=== PATIENT | male | born 1950 | race Caucasian/White ===

== ENCOUNTER → 2017-08-22 | Outpatient (CLI) | payer MEDICARE, OTHER ==
[2014-09-17 14:28] VITALS: BMI 36.5
[~2017-08-22] MED LIST: AMO500 PO; ASPI-1471 PO; AZIT-17 PO; LISI-362 PO; LISI20TA29 PO; LISI5TAB25 PO; MET500 PO; METF-420 PO; MULT-1 PO; MULT-885 PO; OXYGENHOME INH; PNEI IJ; SIMV-49 PO; SITA1TAB17 PO; TADA20TA33 PO; TADA5TAB7 PO
[2017-08-22 09:56] LABS: PLATELET COUNT, AUTOMATED 177 K/uL (150-450)
[2017-08-22 10:17] LABS: LDL CHOLESTEROL 88 mg/dl
== END ==
LOC: LAB 09:11
PROVIDERS: ATTEND Internal Medicine
DX: E11.22 Type 2 diabetes mellitus with diabetic chronic kidney disease (principal); N18.3 Chronic kidney disease, stage 3 (moderate); E78.5 Hyperlipidemia, unspecified
CPT/HCPCS: 36415; 82040; 82247; 82310; 82374; 82435; 82465; 82565; 82947; 83036; 83718; 84075; 84132; 84155; 84295; 84443; 84450; 84460; 84478; 84520; 85025

== ENCOUNTER → 2018-01-05 | Outpatient (CLI) | payer MEDICARE, OTHER ==
[2014-09-17 14:28] VITALS: BMI 36.5
[~2018-01-05] MED LIST changes: +GLIM2TAB43 PO; +HYDR12.561 PO; -METF-420 PO; +METF-421 PO; +trimix
[2018-01-05 09:02] LABS: PLATELET COUNT, AUTOMATED 199 K/uL (150-450)
== END ==
LOC: LAB 08:44
PROVIDERS: ATTEND Internal Medicine
DX: Z12.5 Encounter for screening for malignant neoplasm of prostate (principal); E11.9 Type 2 diabetes mellitus without complications; E78.5 Hyperlipidemia, unspecified; I10 Essential (primary) hypertension; R06.00 Dyspnea, unspecified; R09.02 Hypoxemia; D75.1 Secondary polycythemia
CPT/HCPCS: 36415; 81001; 82728; 83036; 83540; 83550; 84443; 85025; G0103; 82040; 82247; 82310; 82374; 82435; 82465; 82565; 82947; 83718; 84075; 84132; 84153; 84155; 84295; 84450; 84460; 84478; 84520

== ENCOUNTER → 2018-02-01 | Outpatient (CLI) | payer MEDICARE, OTHER ==
[2014-09-17 14:28] VITALS: BMI 36.5
== END ==
LOC: LAB 08:22
PROVIDERS: ATTEND Internal Medicine
DX: E11.9 Type 2 diabetes mellitus without complications (principal)
CPT/HCPCS: 36415; 82040; 82247; 82310; 82374; 82435; 82565; 82947; 84075; 84132; 84155; 84295; 84450; 84460; 84520

== ENCOUNTER 2018-03-14 02:32 | Day surgery (SDC) | payer MEDICARE, OTHER ==
[2014-09-17 14:28] VITALS: Ht 180.3 cm; Wt 118.4 kg
[~2018-03-14] VITALS: Ht 180.3 cm; Wt 118.4 kg
[2018-03-14 06:54] VITALS: BP 147/79
[2018-03-14] MEDS ORDERED: LIDOCAINE MPF 1% 5 ML VIAL ONE (07:08)
[2018-03-14] MEDS ORDERED: PROPOFOL EMUL(*) 10MG/ML 20 ML 40 ML ONE (07:08)
[2018-03-14] MEDS ORDERED: LIDOCAINE/SOD BICARB 8.4% SYR ID ONE (07:10)
[2018-03-14] MEDS ORDERED: NORMOSOL R SOLN(*) 1000 ML BAG 1,000 ML IV PRN (07:10)
[2018-03-14 08:21] VITALS: BP 120/74
--- NOTE | 2018-03-14 08:28 | Short(Outpt) Discharge Summary ---
Discharge Summary Reason for Hosp/Final Diag: (1) Colon cancer screening Status: Chronic Hospital Course & Plan: Colonoscopy was completed without any problems: normal. Departure Discharge to: Home, Self Care Discharge Instructions Home Meds Active Scripts Hydrochlorothiazide (HYDROCHLOROTHIAZIDE) 12.5 Mg Tablet, 1 TAB PO QDAY, #90 TAB 3 Refills Prov:LONNY QUEEN MD 02/23/18 Simvastatin (SIMVASTATIN) 20 Mg Tablet, 1 TAB PO HS, #90 TAB 4 Refills Prov:LONNY QUEEN MD 09/30/17 Lisinopril (LISINOPRIL) 20 Mg Tablet, 1 TAB PO BID, #180 TAB 4 Refills Prov:LONNY QUEEN MD 09/12/17 Glimepiride (GLIMEPIRIDE) 2 Mg Tablet, 2 MG PO QDAY, #30 TAB 6 Refills Prov:LONNY QUEEN MD 08/25/17 Sitagliptin Phos/Metformin Hcl (JANUMET 50-1,000 MG TABLET) 1 Each Tablet, 1 EACH PO BID, #180 TAB 3 Refills Prov:LONNY QUEEN MD 04/12/17 Oxygen (OXYGEN) Inha, 3 L INH QPM, #3 L Prov:LONNY QUEEN MD 05/31/16 Aspirin (ASPIR 81) 81 Mg Tablet.dr, 81 MG PO QDAY, #90 TAB Prov:LONNY QUEEN MD 11/24/15 Reported Medications [trimix] No Conflict Check, 0.2 ML 3XW Y for ED 08/25/17 Multivitamin (DAILY VITAMIN) 1 Each Tablet, 1 TAB PO QDAY 08/30/14 Diet: Regular Activity: As Tolerated Special Instructions: Your colonoscopy was completed without problems and your prep was excellent (Good Job!!). I didn't find any polyps, cancer, or other abnormalities; it was completely normal. I recommend that your next colonoscopy be in 10 years for continued colorectal cancer screening. Copies to: LONNY QUEEN MD, JOHN A MD Mar 14, 2018 08:27
[2018-03-14 08:30] VITALS: BP 108/71
[2018-03-14 08:45] VITALS: BP 123/74
[2018-03-14 08:59] VITALS: BP 124/69
[2018-03-14 09:00] VITALS: BP 130/68
== END 2018-03-14 09:27 | disposition home or self-care (01) ==
LOC: OR 02:32
PROVIDERS: ATTEND Surgery
DX: Z12.11 Encounter for screening for malignant neoplasm of colon (principal); I10 Essential (primary) hypertension; E78.5 Hyperlipidemia, unspecified; E11.9 Type 2 diabetes mellitus without complications
CPT/HCPCS: 00812; G0121; 36416; 82948; J2001; J2704

== ENCOUNTER → 2018-08-04 | Outpatient (CLI) | payer MEDICARE, OTHER ==
[2014-09-17 14:28] VITALS: BMI 36.5
[~2018-08-04] MED LIST changes: -METF-421 PO; +METF-452 PO
[2018-08-04 08:57] LABS: PLATELET COUNT, AUTOMATED 196 K/uL (150-450)
[2018-08-04 09:25] LABS: LDL CHOLESTEROL 64 mg/dl
== END ==
LOC: LAB 08:43
PROVIDERS: ATTEND Internal Medicine
DX: E11.9 Type 2 diabetes mellitus without complications (principal); D75.1 Secondary polycythemia; E78.5 Hyperlipidemia, unspecified; I10 Essential (primary) hypertension
CPT/HCPCS: 36415; 81001; 82040; 82043; 82247; 82310; 82374; 82435; 82465; 82565; 82728; 82947; 83036; 83540; 83550; 83718; 84075; 84132; 84155; 84295; 84443; 84450; 84460; 84478; 84520; 85025

== ENCOUNTER → 2018-12-04 | Outpatient (CLI) | payer MEDICARE, OTHER ==
[2014-09-17 14:28] VITALS: BMI 36.5
[~2018-12-04] MED LIST changes: +PRED-420 PO; +SIMV-54 PO
[2018-12-04 16:45] LABS: PLATELET COUNT, AUTOMATED 332 K/uL (150-450)
== END ==
LOC: LAB 16:24
PROVIDERS: ATTEND Internal Medicine
DX: D75.1 Secondary polycythemia (principal); E11.9 Type 2 diabetes mellitus without complications; R09.02 Hypoxemia; E78.5 Hyperlipidemia, unspecified; I10 Essential (primary) hypertension; M10.9 Gout, unspecified
CPT/HCPCS: 36415; 82040; 82247; 82310; 82374; 82435; 82465; 82565; 82947; 83036; 83718; 84075; 84132; 84155; 84295; 84443; 84450; 84460; 84478; 84520; 84550; 85025; 85651; 86140